=== PATIENT | male | born 1960 | race Caucasian/White ===

== ENCOUNTER 2021-02-12 09:00 | Outpatient (CLI) | payer OTHER, MEDICARE ==
[2021-02-12] MEDS ORDERED: OMNIPAQUE 350 MG/ML, 150 ML BOTTLE ONE (10:35)
== END 2021-02-12 23:59 | disposition home or self-care (01) ==
LOC: CFH 09:00
PROVIDERS: ATTEND Surgery
DX: I82.492 Acute embolism and thrombosis of other specified deep vein of left lower extremity (principal); K59.00 Constipation, unspecified; I26.99 Other pulmonary embolism without acute cor pulmonale; J47.9 Bronchiectasis, uncomplicated; J92.9 Pleural plaque without asbestos
CPT/HCPCS: 74177; 82565; Q9967